=== PATIENT | male | born 1950 ===

== ENCOUNTER 2021-05-27 16:49 | Emergency (ER) | payer MEDICARE, OTHER ==
[~2021-05-27] VITALS: Ht 188 cm; Wt 56.7 kg
--- NOTE | 2021-05-27 16:50 | NUR ---
BIB [id number] FROM [facility] ([phone]) FOR G-TUBE REPLACEMENT.
--- NOTE | 2021-05-27 16:59 | NUR ---
PT IS IN ROOM #2B. DR PEREZ EVALUATED THE PT.
--- NOTE | 2021-05-27 17:00 | NUR ---
There was no transfer paperwork received from transport EMT's. Called [facility] ([phone]) and spoke with Teresa who stated she will fax the paperwork.
[2021-05-27] MEDS ORDERED: DIATR MEGLU/DIATRIZOATE SODIUM 30 ML BOTTLE ONE (17:25)
--- NOTE | 2021-05-27 18:31 | NUR ---
[facility] ([phone]) was called for BLS unit to [place] [facility] ERINN is 90 minutes.
--- NOTE | 2021-05-27 19:05 | NUR ---
RECEIVED REPORT FROM DADA JONES, VSS. BREATHING EVEN AND UNLABORED.
--- NOTE | 2021-05-27 20:20 | NUR ---
CALLED [facility] TO FOLLOW UP FOR TRANSPORTATION, PROVIDED WITH ETA OF 30-40 MINUTES.
--- NOTE | 2021-05-27 21:00 | NUR ---
Patient discharged to [facility] in stable condition. Written and verbal after care instructions given to thermal cutter hand and verbalizes understanding of instructions. Stressed follow up or return to ER for worsening s/s. Abdominal binder placed on pt, VSS.
[2021-05-27 21:02] VITALS: BP 114/72
== END 2021-05-27 21:03 ==
LOC: ER 16:49
DX: Z43.1 Encounter for attention to gastrostomy (principal); G20 Parkinson's disease; I10 Essential (primary) hypertension; E78.5 Hyperlipidemia, unspecified; F20.9 Schizophrenia, unspecified; F31.9 Bipolar disorder, unspecified
CPT/HCPCS: 74018; A4663; Q9963